=== PATIENT | female | born 2000 | race African-American/Black ===

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

== ENCOUNTER 2024-11-02 15:13 | Emergency (ER) | payer MEDICAID ==
[~2024-11-02] VITALS: Ht 162.6 cm; Wt 79.0 kg
[2024-11-02 15:21] VITALS: O2SAT 100
[2024-11-02] MEDS: ACETAMINOPHEN 325MG TABLET PO ONE (16:45)
[2024-11-02] MEDS ORDERED: BO1 TP (16:45)
[2024-11-02] MEDS ORDERED: ACET-2708 MT (16:45)
[2024-11-02] MEDS: TETANUS, DIPHTHERIA, PERTUSSIS VAC/PF 0.5ML (>10YR OLD) IM ONE (16:45)
[2024-11-02] MEDS: BACITRACIN ZINC OINT UDPKT TOP ONE (16:45)
[2024-11-02] MEDS: LIDOCAINE HCL/PF 1% 10 MG/ML 5ML VIAL INFIL ONE (16:50)
[2024-11-02 17:16] VITALS: BP 120/70; PULSE 70; RESP 18; TEMP 36.7; O2SAT 99
== END 2024-11-02 17:17 | disposition home or self-care (01) ==
LOC: ER 15:13
DX: S61.511A Laceration without foreign body of right wrist, initial encounter (principal); F12.90 Cannabis use, unspecified, uncomplicated; Z79.899 Other long term (current) drug therapy; Z88.0 Allergy status to penicillin; X58.XXXA Exposure to other specified factors, initial encounter; Y93.89 Activity, other specified; Y92.89 Other specified places as the place of occurrence of the external cause; Y99.8 Other external cause status
CPT/HCPCS: 99283; 90715; 12002; 90471; J2003